=== PATIENT | male | born 1990 | race Two or more races ===

== ENCOUNTER 2023-12-12 06:35 | Emergency (ER) | payer OTHER ==
[~2023-12-12] VITALS: Ht 190.5 cm; Wt 86.0 kg
[2023-12-12] MEDS: IBUPROFEN 600 MG TAB PO ONE (08:20)
[2023-12-12 08:21] VITALS: BP 123/76; PULSE 71; RESP 18; TEMP 97.8; O2SAT 96
== END 2023-12-12 08:26 | disposition home or self-care (01) ==
LOC: ER 06:35 → EDBD 06:35 → ER 08:23
DX: M79.18 Myalgia, other site (principal); M54.2 Cervicalgia; R51.9 Headache, unspecified; W18.39XA Other fall on same level, initial encounter; Y93.89 Activity, other specified; Y92.89 Other specified places as the place of occurrence of the external cause; Y99.8 Other external cause status
CPT/HCPCS: 70450; 72125